=== PATIENT | female | born 1995 | race Two or more races ===

== ENCOUNTER 2024-07-08 10:28 | Observation (INO) | payer MEDICAID ==
[~2024-07-08 10:28] MED LIST: ACET-1304 PO; AZITTAB PO; CEFU500T43 PO; ONDA-133 PO; RANI-185 PO
[2024-07-08] MEDS ORDERED: PREN-96 PO (17:02)
--- NOTE | 2024-07-08 17:50 | DVH ---
BIOPHYSICAL PROFILE HISTORY: GDMA2 Comparison Study: None TECHNIQUE: Multiple real-time grayscale sonographic images through the gravid uterus of the fetus wi th duplex Doppler color flow and M-mode spectral analysis FINDINGS: BIOPHYSICAL PROFILE: breathing score: 2 movement score: 2 tone score: 2 Quantitative ANITA score: 2 (ANITA: 21 Cm.) Total score: 8 The cervix is not visualized Single live fetus in cephalic presentation. heart rate 133 beats per minute. Right lateral placenta without previa or abruption IMPRESSION: Biophysical profile score: 8
--- NOTE | 2024-07-09 06:29 | DVHDS2 ---
Physician Discharge Progress N Final Diagnosis: gdm 36wks Operations or Procedures: Operations or Procedures nst,sono Condition on Discharge: Good Disposition: Home Discharge Instructions: Diet: Regular Activity: No Restrictions, As Tolerated Medications: na Follow Up Care: Specialist: 3d Discharge Statement: "Patient was advised to return to the ER or call 911 if any headaches, dizziness, shortness of breath, chest pain, abdominal pain, bleeding, fevers, or worsening of medical condition. Patient was counseled about treatment plan, medications, possible side effects, patientverbalized understanding. All questions were answered to the best of my ability. This discharge took greater then 30 minutes in planning, reviewing documentation, counseling the patient, and discussing with other team members." Visit Coding OBGYN Date of Service: Jul 08, 2024 Billing Provider: SANDRA CAMARENA DO SYRUP MIXER HELPER Common Visit Codes: [id number] INP/OBS CARE (HIGH) SYRUP MIXER HELPER Procedure Codes: 86049-20- NON-STRESS TEST SANDRA CAMARENA DO Jul 09, 2024 06:29
== END 2024-07-08 18:50 | disposition home or self-care (01) ==
LOC: LDRP 16:33
PROVIDERS: ADMIT Obstetrics & Gynecology; ATTEND Obstetrics & Gynecology
DX: O24.419 Gestational diabetes mellitus in pregnancy, unspecified control (principal); Z3A.36 36 weeks gestation of pregnancy; Z79.899 Other long term (current) drug therapy
CPT/HCPCS: 76818; 82948; 82962; 94760; G0378; 76819

== ENCOUNTER 2024-07-11 07:30 | Observation (INO) | payer MEDICAID ==
[~2024-07-11 07:30] MED LIST changes: +PREN-96 PO
--- NOTE | 2024-07-11 17:44 | DVH ---
EXAM: US BIOPHYSICAL PROFILE HISTORY: GDMA2 COMPARISON: US BIOPHYSICAL PROFILE on DOS: 07/08/24 TECHNIQUE: Multiple transabdominal real-time grayscale sonographic images through the gravid uterus of the fetus with duplex Doppler color flow and M-mode spectral analysis Findings/Impression: Single live intrauterine in vertex presentation with heart rate of 159 bpm. Biophysical profile was performed with 2 points for respirations, 2 points for movement, 2 points for tone and 2 points for amniotic fluid index. Biophysical profile score of 8/8. Amniotic fluid is within normal limits with ANITA 17.2 cm and MVP 5.4 cm. Normal ANITA (5-25 cm) Normal MVP (2-8 cm)
--- NOTE | 2024-07-12 11:35 | DVHDS2 ---
Physician Discharge Progress N Final Diagnosis: [id number] Operations or Procedures: Operations or Procedures nst,sono Condition on Discharge: Good Disposition: Home Discharge Instructions: Diet: See Comment Diet comment: Gestational Diabetes diet Activity: No Restrictions, As Tolerated Medications: na Follow Up Care: Specialist: 4d Discharge Statement: "Patient was advised to return to the ER or call 911 if any headaches, dizziness, shortness of breath, chest pain, abdominal pain, bleeding, fevers, or worsening of medical condition. Patient was counseled about treatment plan, medications, possible side effects, patientverbalized understanding. All questions were answered to the best of my ability. This discharge took greater then 30 minutes in planning, reviewing documentation, counseling the patient, and discussing with other team members." Visit Coding OBGYN Date of Service: Jul 11, 2024 Billing Provider: SANDRA CAMARENA DO CHILDREN'S LITERATURE PROFESSOR Common Visit Codes: [id number] INP/OBS CARE (HIGH) SANDRA CAMARENA DO Jul 12, 2024 11:35
== END 2024-07-11 18:16 | disposition home or self-care (01) ==
LOC: LDRP 16:52
PROVIDERS: ADMIT Obstetrics & Gynecology; ATTEND Obstetrics & Gynecology
DX: O24.419 Gestational diabetes mellitus in pregnancy, unspecified control (principal); Z98.890 Other specified postprocedural states; Z79.899 Other long term (current) drug therapy; Z3A.37 37 weeks gestation of pregnancy
CPT/HCPCS: 59025; 76819; 81002; 82948; 82962; 94760; G0378

== ENCOUNTER 2024-07-14 11:57 | Observation (INO) | payer MEDICAID ==
--- NOTE | 2024-07-14 12:28 | DVHDS2 ---
Physician Discharge Progress N Final Diagnosis: gdm 37wks Operations or Procedures: Operations or Procedures nst,sono Condition on Discharge: Good Disposition: Home Discharge Instructions: Diet: Consistent carbohydrate Activity: No Restrictions, As Tolerated Medications: na Follow Up Care: Specialist: 4d Discharge Statement: "Patient was advised to return to the ER or call 911 if any headaches, dizziness, shortness of breath, chest pain, abdominal pain, bleeding, fevers, or worsening of medical condition. Patient was counseled about treatment plan, medications, possible side effects, patientverbalized understanding. All questions were answered to the best of my ability. This discharge took greater then 30 minutes in planning, reviewing documentati on, counseling the patient, and discussing with other team members." Visit Coding OBGYN Date of Service: Jul 14, 2024 Billing Provider: SANDRA CAMARENA DO BAKER CHEF Common Visit Codes: [id number] OBS CARE (HIGH) BAKER CHEF Procedure Codes: 05177-54- NON-STRESS TEST SANDRA CAMARENA DO Jul 14, 2024 12:28
--- NOTE | 2024-07-14 12:52 | DVH ---
Procedure: US BIOPHYSICAL PROFILE 07/14/2024 12:14 PM Indication: GDMA2 Comparison: US BIOPHYSICAL PROFILE on DOS: 07/11/24, US BIOPHYSICAL PROFILE on DOS: 07/08/24 Technique: Sonogram of gravid uterus utilizing grayscale and color techniques. FINDINGS: Single living intrauterine gestation. Presentation: Cephalic Placenta: Posterior heart rate: 144 bpm ANITA: 15.8 cm, DVP: 6.7 cm Maternal cervix: Not visualized Biophysical Profile: breathing score: 2 movement score: 2 tone: 2 Quantitative ANITA score: 2 Total score: 8/8 IMPRESSION: 1. Single living as above. 2. Biophysical profile score: 8/8.
== END 2024-07-14 13:19 | disposition home or self-care (01) ==
LOC: UNDOADMOB 11:57 → LDRP 11:57
PROVIDERS: ADMIT Obstetrics & Gynecology; ATTEND Obstetrics & Gynecology
DX: O24.419 Gestational diabetes mellitus in pregnancy, unspecified control (principal); Z3A.37 37 weeks gestation of pregnancy; Z79.899 Other long term (current) drug therapy
CPT/HCPCS: 59025; 76819; 81002; 82948; 82962; 94760; G0378

== ENCOUNTER 2024-07-18 06:55 | Observation (INO) | payer MEDICAID ==
--- NOTE | 2024-07-18 18:48 | DVH ---
Procedure: US BIOPHYSICAL PROFILE 07/18/2024 05:26 PM Indication: GDMA1 Comparison: US BIOPHYSICAL PROFILE on DOS: 07/14/24, US BIOPHYSICAL PROFILE on DOS: 07/11/24, US BIOPHYS ICAL PROFILE on DOS: 07/08/24 Technique: Sonogram of gravid uterus utilizing grayscale and color techniques. FINDINGS: Single living intrauterine gestation. Orientation: Oblique lie Placenta: Posterior and fundal with no evidence of previa or abruption heart rate: 140 bpm ANITA: 17.5 cm, DVP: 4 cm Maternal cervix: Closed, 4.8 cm in length Biophysical Profile: breathing score: 2 movement score: 2 tone: 2 Quantitative ANITA score: 2 Total score: 8/8 IMPRESSION: 1. Single living as above. 2. Biophysical profile score: 8/8.
--- NOTE | 2024-07-18 23:11 | DVHDS2 ---
Discharge Summary Date of Admission Jul 18, 2024 at 17:04 Date of Discharge: Jul 18, 2024 Admitting Diagnosis gdm a2 38 wks Labs/Diagnostic Data: Laboratory Results Test 07/18/24 18:32 POC Glucose 110 mg/dl (70-106) Brief Hx & Hospital Course: gdm A2 Condition at Discharge: Good Final Diagnosis/Problems List GDM A2 Discharge Disposition: Home Discharge Instruct/Medications Diet: Consistent carbohydrate Activity: No Restrictions, As Tolerated Follow Up/Referral: reasuring fht Discharge Statement: "Patient was advised to return to the ER or call 911 if any headaches, dizziness, shortness of breath, chest pain, abdominal pain, bleeding, fevers, or worsening of medical condition. Patient was counseled about treatment plan, medications, possible side effects, patientverbalized understanding. All questions were answered to the best of my ability. This discharge took greater then 30 minutes in planning, reviewing documentation, counseling the patient, and discussing with other team members." ASSESSMENT ASSESSMENT Assessment Visit Coding OBGYN Date of Service: Jul 18, 2024 Billing Provider: IVETH HUERTA DO MACHINE II TRIMMER Common Visit Codes: [id number] INP/OBS CARE(HIGH), 04784-YHX/OBS SAME DATE (LOW), 16118-GOO/OBS SAME DATE (MOD) MACHINE II TRIMMER Procedure Codes: 54798-54- NON-STRESS TEST IVETH HUERTA DO Jul 18, 2024 23:11
== END 2024-07-18 19:21 | disposition home or self-care (01) ==
LOC: LDRP 17:04
PROVIDERS: ADMIT Obstetrics & Gynecology; ATTEND Obstetrics & Gynecology
DX: O24.419 Gestational diabetes mellitus in pregnancy, unspecified control (principal); Z98.890 Other specified postprocedural states; Z79.899 Other long term (current) drug therapy; Z3A.38 38 weeks gestation of pregnancy
CPT/HCPCS: 59025; 76819; 81002; 82948; 82962; 94760; G0378

== ENCOUNTER 2024-07-21 06:41 | Observation (INO) | payer MEDICAID ==
[~2024-07-21 06:41] MED LIST changes: -ACET-1304 PO; -AZITTAB PO; -CEFU500T43 PO; -ONDA-133 PO; -RANI-185 PO
--- NOTE | 2024-07-21 12:54 | DVH ---
BIOPHYSICAL PROFILE HISTORY: gdma2 Comparison Study: None available at time of dictation. TECHNIQUE: Multiple real-time grayscale sonographic images through the gravid uterus of the fetus wi th duplex Doppler color flow and M-mode spectral analysis FINDINGS: BIOPHYSICAL PROFILE: breathing score: 2/2 movement score: 2/2 tone score: 2/2 Quantitative ANITA score: 2/2 (ANITA: 15.3 Cm.) Total score: 8/8 The cervix closed Single live fetus in variable presentation. heart rate 135 beats per minute. Posterior fundal placenta. IMPRESSION: 1. Biophysical profile score: 8/8
[2024-07-21] MEDS ORDERED: CEPH250C PO (13:22)
--- NOTE | 2024-07-23 08:20 | DVHDS2 ---
Physician Discharge Progress N Final Diagnosis: gdm 38wks Operations or Procedures: Operations or Procedures nst,sono Condition on Discharge: Good Disposition: Home Discharge Instructions: Diet: Consistent carbohydrate Activity: No Restrictions, As Tolerated Medications: na Follow Up Care: Specialist: 3d Discharge Statement: "Patient was advised to return to the ER or call 911 if any headaches, dizziness, shortness of breath, chest pain, abdominal pain, bleeding, fevers, or worsening of medical condition. Patient was counseled about treatment plan, medications, possible side effects, patientverbalized understanding. All questions were answered to the best of my ability. This discharge took greater then 30 minutes in planning, reviewing documentati on, counseling the patient, and discussing with other team members." Visit Coding OBGYN Date of Service: Jul 21, 2024 Billing Provider: SANDRA CAMARENA DO PRODUCTION LINE Common Visit Codes: [id number] OBS CARE (HIGH) PRODUCTION LINE Procedure Codes: 58299-76- NON-STRESS TEST SANDRA CAMARENA DO Jul 23, 2024 08:20
== END 2024-07-21 13:32 | disposition home or self-care (01) ==
LOC: UNDOADMOB 11:48 → LDRP 11:48
PROVIDERS: ADMIT Obstetrics & Gynecology; ATTEND Obstetrics & Gynecology
DX: O24.419 Gestational diabetes mellitus in pregnancy, unspecified control (principal); Z3A.38 38 weeks gestation of pregnancy; Z79.899 Other long term (current) drug therapy; Z98.890 Other specified postprocedural states
CPT/HCPCS: 59025; 76819; 81002; 82948; 82962; 94760; G0378

== ENCOUNTER 2024-07-29 06:13 | Inpatient (IN) | payer MEDICAID ==
[~2024-07-29] VITALS: Ht 154.9 cm; Wt 114.3 kg
[2024-07-29] VITALS (13 sets, daily range): BP systolic 107–136; BP diastolic 66–82; PULSE 60–83; RESP 15–25; TEMP 97.8–98.5; O2SAT 95–100
[~2024-07-29 06:13] MED LIST changes: +CEPH250C PO
--- NOTE | 2024-07-29 07:40 | DVH ---
CLINICAL HISTORY: Gestational diabetes. COMPARISON: US BIOPHYSICAL PROFILE on DOS: 07/21/24, US BIOPHYSICAL PROFILE on DOS: 07/18/24, US BIOPHY SICAL PROFILE on DOS: 07/14/24 TECHNIQUE: biophysical profile was performed. Transabdominal sonographic images of the fetus we re obtained. FINDINGS: The fetus is in cephalic position. heart rate measures 147 BPM. Amniotic fluid index measures 14.2 cm. The placenta is posterior/fundal in position with no evidence of previa or abruptio n. BPP profile is an overall score of 8/8, with 2/2 points for breathing, with at least one episode of breathing over a 30 second duration during a 30 minute observation, 2/2 points for m ovements, with 3 or more discrete body or limb movements, 2/2 points for tone, with one or more episodes of extremity extension with return to flexion, or opening and closing of hand, and 2/ 2 points for amniotic fluid, with at least 1 pocket of amniotic fluid that measures 2 cm in 2 perpend icular planes. IMPRESSION: BPP score of 8/8.
[2024-07-29] MEDS ORDERED: PHISODERM TOP SOLN 240ML BTL TOP PRN (07:45)
[2024-07-29] MEDS ORDERED: DEXTROSE (50%) 50ML SYRG IV PRN (07:45)
[2024-07-29] MEDS ORDERED: BUTORPHANOL TARTRATE 2 MG/1 ML VIAL IV PRN ×2 (07:45)
[2024-07-29] MEDS ORDERED: PENICILLIN G POT 5MIL/D5 50ML 50 ML IV ONE (07:45)
[2024-07-29] MEDS: InsuLIN REG 1unit/0.01ml Soln (100units/ml) IV ONE (07:45)
[2024-07-29] MEDS ORDERED: LIDOCAINE 2%HCL (LOCAL ANESTH.) INJ 20ML MDV IJ PRN (07:45)
[2024-07-29] MEDS ORDERED: WITCH HAZEL-GLYCERIN PAD TOP PRN (07:45)
[2024-07-29] MEDS ORDERED: miSOPROStol 50 MCG per PRE-CUT 1/2 TAB PO PRN (07:45)
[2024-07-29] MEDS ORDERED: DERMOPLAST 60ML BOTTLE TOP PRN (07:45)
[2024-07-29] MEDS ORDERED: ACCU-CHEK COMFORT CURVE STRIP VI SCH ×2 (08:00→10:00)
[2024-07-29] MEDS ORDERED: InsuLIN REG 1unit/0.01ml Soln (100units/ml) SC SCH (08:00)
--- NOTE | 2024-07-29 08:10 | DVHHP2 ---
OB CC & HPI Date Date of Admission: Jul 29, 2024 Patient Identification: : 2 Para: 1 EDC: Jul 31, 2024 EGA: 39.5 Chief Complaints: Reason for admission: induction of labor Indication for induction: other (GDMA2, non compliant with care) History of Present Complaints 28y IUP 39.5 wk, admitted per Dr Crowell for Induction of Labor (IOL) due to poorly controlled GDMA2- on Insulin and Metformin. Patient has been poorly compliant with care. EFW 8.5 pounds. GBS unknown. Denies any symptoms of labor at this time. Past Medical History Cardiac: No pertinent Hx Pulmonary: No pertinent Hx Central Nervous System: No pertinent Hx GI: No pertinent Hx Hemotology/Oncology: No pertinent Hx Hepatobiliary: No pertinent Hx Psychiatric: No pertinent Hx Musculoskeletal: No pertinent Hx Rheumotologic: No pertinent Hx Infectious Disease: No peritnent Hx ENT: No pertinent Hx Renal/: No pertinent Hx Endocrine: No pertinent Hx Dermatology: No pertinent Hx Past Surgical History: No pertinent Hx OB History OB History Care: Limited Care Ultrasounds: Normal mid trimester US Obstetrical Complications: Gestational Diabetes Allergies: Coded Allergies: NO KNOWN ALLERGIES (Unverified , 04/03/13) Home Meds Reported Medications Cephalexin (KEFLEX CAPSULE) 250 Mg Cp, 500 MG PO Q6HR for 7 Days 07/21/24 Vit W/ Ferrous Fumara ( One Daily) Daily Tab, 1 TAB PO DAILY, #90 TAB 3 Refills 07/08/24 Current Medications Current Medications Medications (Trade) Dose Ordered Sig/Juan Ramon Route PRN Reason Start Time Stop Time Status Last Admin Lactated Ringer's 1,000 ml @ 125 mls/hr Q8H IV 07/29/24 07:45 Diagnostic Test (Pha) (Accu-Chek Comfort Curve T) 1 strip Q4HP 07/29/24 10:00 07/29/24 07:43 TU Pandey (Tucks) 1 pad PRN PRN TOP PERINEAL AREA DISCOMFORT 07/29/24 07:45 Sodium Lauryl Sulfate (Phisoderm) 240 ml PRN PRN TOP PERINEAL AREA DISCOMFORT 07/29/24 07:45 Benzocaine (Dermoplast) 1 applic PRN PRN TOP PERINEAL AREA DISCOMFORT 07/29/24 07:45 Butorphanol Tartrate (Stadol Injection) 1 mg Q4HPRN PRN IV MODERATE PAIN (4-6 PAIN SCALE) 07/29/24 07:45 Butorphanol Tartrate (Stadol Injection) 2 mg Q4HPRN PRN IV SEVERE PAIN (7-10 PAIN SCALE) 07/29/24 07:45 Misoprostol (Cytotec) 50 mcg Q4HPRN PRN PO CERVICAL RIPENING 07/29/24 07:45 Lidocaine HCl (Xylocaine) 20 ml ONCE PRN IJ PERINEAL AREA DISCOMFORT 07/29/24 07:45 Diagnostic Test (Pha) (Accu-Chek Comfort Curve T) 1 strip IQ4HR 07/29/24 08:00 Insulin Human Regular (InsuLIN R) IQ4HR SC 07/29/24 08:00 Dextrose 50 ml UD PRN IV Blood Sugar LESS THAN 60 07/29/24 07:45 Penicillin G Potassium [id number] units/Dextrose 50 ml @ 100 mls/hr Q4H IV 07/29/24 11:45 UNV Family & Social History Family/Social History RPR/VDRL: Negative GBS Status: Unknown HBsAG: Negative Review of Systems Constitutional: No symptom reported Ears, Nose, & Throat: No symptom reported Eyes: No symptom reported Pulmonary/Respiratory: No symptom reported Cardiovascular: No symptom reported Gastrointestinal: No symptom reported Genitourinary: No symptom reported Musculoskeletal: No symptom reported Skin: No symptom reported Psychiatric: No symptom reported Endocrine: No symptom reported Hemotologic/Lymphatic: No symptom reported OB Admission Exam Physical Exam HEENT: NCAT, PERRLA, Moist Membranes, EOMI Heart: Rhythm Normal Lungs: Clear Abdomen: Gravid Extremities: Normal Reflexes: Normal Cervical Dilatation: None Effacement: 0% Station: Ballotable Membranes: Intact Heart Rate: 130's Accelerations: Accelerations Present Decelerations: No Decelerations Short Term Variability: Present Imaging Services Director Variability: Average (6-25) Contractions on Admission: 6-10 Minutes Apart Intensity: Mild OB Plan Plan Admitting Diagnosis: 1. Term IUP GDMA2, poor control 2. Morbid Obesity (BMI 48) complicating 3. GBS unknown status 4. Suspected LGA, cephalopelvic disproportion Plan: Section Other Plan: Informed consent obtained for treatment. Clincially, pelvis feels narrow and contracted, yet exam is limited by patient habitus EFW 3700 gm by US today. I discussed uncertainty of US EFW by as much as 15% I offered patient 1' c/section due to the risks of macrosomia/LGA She understands LGA can be associated with trauma, failed induction of labor, shoulder dystocia with resulting nerve injury, Erb palsy, bone fractures, asphyxia , damage and . She was also given the option of labor induction with a trial of labor with C/S only for and standard indications of obstructed labor. She and her asked questions and have elected to proceed with 1' C/S without a trial of labor Risks of surgery: pain, scar, bleeding, infection, injury to bowel/bladder, adjacent organs, poss blood transfusion all reviewed w/ patient in detail. Visit Coding OBGYN Date of Service: Jul 29, 2024 Billing Provider: YASSINE OLIVER DO RISK PROFESSIONAL Common Visit Codes: [id number] OBS CARE (HIGH) YASSINE OLIVER DO Jul 29, 2024 08:10
[2024-07-29 08:19] LABS: Basophils # (auto) 0 10 ^3/uL (0-0.2); Basophils % (auto) 0.4 % (0.0-2.0); Eosinophils # (auto) 0.1 10 ^3/uL (0-0.8); Eosinophils % (auto) 1.2 % (0.0-7.0); Hematocrit 38.6 % (36.0-46.0); Hemoglobin 13.3 g/dL (12.2-16.2); Lymphocytes # (auto) 1.1 10 ^3/uL (0.4-5.4); Lymphocytes % (auto) 15.5 % (10.0-50.0); Mean Corpuscular Hemoglobin 31.8 pg (28.0-32.0); Mean Corpuscular Hgb Conc. 34.4 g/dL (32.0-36.0); Mean Corpuscular Volume 92.6 fL (80.0-100.0); Monocytes # (auto) 0.3 10 ^3/uL (0-1.3); Monocytes % (auto) 4.4 % (0.0-12.0); Neutrophils # (auto) 5.7 10 ^3/uL (1.6-8.6); Neutrophils % (auto) 78.5 % (37.0-80.0); Nucleated Red Blood Cells % 0.1 %; Platelet Count (auto) 345 10^3/uL (140-450); Red Blood Cells 4.17 10^6/uL (4.0-5.20); Red Cell Distribution Width 15.1 % (11.8-14.3); White Blood Cell 7.2 10^3/uL (4.4-10.8)
[2024-07-29 08:32] LABS: Alanine Aminotransferase 31 U/L (7-40); Albumin 4.3 g/dL (3.2-4.8); Anion Gap 10 (5-15); Aspartate Aminotransferase 32 U/L (13-40); BUN/Creatinine Ratio 16.7 (10.0-20.0); Bilirubin, Total 0.4 mg/dL (0.2-1.0); Blood Urea Nitrogen 11 mg/dL (9-23); Calcium 9.8 mg/dL (8.7-10.4); Carbon Dioxide 22 mmol/L (20-31); Chloride 105 mmol/L (98-107); Glucose 103 mg/dL (74-106); Potassium 4.4 mmol/L (3.5-5.1); Sodium 137 mmol/L (136-145); Total Protein 7.3 g/dL (5.7-8.2)
[2024-07-29 08:33] LABS: Alkaline Phosphatase 172 U/L (46-116)
[2024-07-29 08:36] LABS: INR 1.02 (0.9-1.15); Partial Thromboplastin Time 29.3 SEC (24.5-34.5); Prothrombin Time 10.8 sec (9.3-11.8)
[2024-07-29 08:42] LABS: Urine Bacteria FEW /hpf (None Seen); Urine Blood 1+ /uL (Negative); Urine Clarity Turbid (Clear); Urine Color Light-Yellow (Yellow); Urine Mucus FEW (None Seen); Urine Protein, UAD Negative (Negative); Urine Specific Gravity 1.016 (1.001-1.035); Urine Squamous Epithelial Cell MOD /hpf (<5); Urine Urobilinogen Normal (Negative); Urine WBC 40 /HPF (0-5); Urine pH 6.5 (5.0-9.0)
[2024-07-29 08:47] LABS: Amphetamine Screen, Urine Neg (NEGATIVE); Barbiturate Scree,Urine Neg (NEGATIVE); Benzodiazephine Screen, Urine Neg (NEGATIVE); Cannabinoid Screen, Urine Neg (NEGATIVE); Cocaine Screen, Urine Neg (NEGATIVE); Opiate Scree,Urine Neg (NEGATIVE); Phencyclidine Screen, Urine Neg (NEGATIVE)
[2024-07-29] MEDS ORDERED: DINOPROSTONE 10MG VAG SUPP PV ONE (09:00)
--- NOTE | 2024-07-29 09:02 | DVH ---
LIMITED OB ULTRASOUND > 14 WKS: HISTORY: GDM suspected macrosomia TECHNIQUE: Multiple real-time grayscale images of the gravid uterus with duplex Doppler color flow an d M-mode spectral analysis. TRANSDUCER: Transabdominal COMPARISON: None FINDINGS: IUP single live fetus at 39 weeks and 3 days based on composite averages of the BPD, head circumferen ce, abdominal circumference and femur length Estimated weight 3787 grams heart rate 142 beats per minute ANITA 14.1 cm Cervix not visualized Cephalic Presentation Posterior Placenta without previa or abruption. IMPRESSION: IUP single live fetus at 39 weeks and 3 days AUA corresponding to an ELENA of 08/02/2024
[2024-07-29] MEDS ORDERED: MORPHINE SULF PF 5 MG/10 ML VIAL ONE (10:00)
[2024-07-29] MEDS ORDERED: oxyTOCIN 10 UNIT/ML 10ML VIAL ONE (10:00)
[2024-07-29] MEDS: ceFAZolin 2 GM/D5W50ml 50 ML IV ONE ×2 (10:17→10:30)
[2024-07-29] MEDS: LACTATED RINGER'S 1,000 ML IV SCH (10:20)
[2024-07-29] MEDS ORDERED: ONDANSETRON HCL 4 MG/2 ML VIAL ONE (10:36)
[2024-07-29] MEDS ORDERED: ePHEDrine SULFATE 50 MG/ML AMP ONE (10:37)
[2024-07-29] MEDS: ceFAZolin 1GM VL ONE (10:45)
[2024-07-29] MEDS ORDERED: HYDROmorphone HCL 2 MG/ML VL/or syr IV PRN ×3 (11:30→11:45)
[2024-07-29] MEDS: GUM (CHEWING) 1 GUM CHEW CHEW ONE (11:30)
--- NOTE | 2024-07-29 11:32 | DVHOP ---
DATE OF SURGERY: 07/29/2024 PREOPERATIVE DIAGNOSES: * Term intrauterine 39 weeks and 4 days. * GDMA2, poorly controlled. * Morbid obesity. * Cephalopelvic disproportion. * Suspected large for gestational age. FINAL DIAGNOSES: * Term intrauterine 39 weeks and 4 days. * GDMA2, poorly controlled. * Morbid obesity. * Cephalopelvic disproportion. * Suspected large for gestational age. PROCEDURE PERFORMED: Primary low transverse section via Pfannenstiel skin incision. SURGEON: Gustavo Proctor DO CARE TAKER: Jimi Ponce NP TYPE OF ANESTHESIA: Spinal ANESTHESIOLOGIST: Wiliam Vargas DO DESCRIPTION OF FINDINGS: Delivery of a liveborn male infant, cephalic presentation, clear amniotic fluid. scores of 8 and 9. Weight 8 pounds 2 ounces. Normal uterus. Normal bilateral fallopian tubes and ovaries, and normal-appearing placenta. TECHNICAL PROCEDURE: After informed consent was obtained, the patient was taken to the operating room where her spinal anesthesia was found to be adequate. She was placed in the supine position with a slight leftward tilt. She was sterilely prepped and draped in the usual fashion. A Pfannenstiel skin incision was made with the scalpel. The incision was carried down sharply to the underlying layer of fascia. The fascia was incised in the midline and extended bilaterally. The rectus muscles were dissected off the rectus fascia and entry into the peritoneal cavity was performed bluntly. The peritoneal incision was extended superiorly and inferiorly with good visualization of the bladder. The Aguila retractor was placed into the incision. Next, the lower uterine segment was incised in a low transverse fashion with a 2nd scalpel. The incision was extended laterally. Using digital technique, the amniotic membranes were ruptured. The baby was found to be in the cephalic presentation, occiput anterior. The baby was then delivered atraumatically. After delivery of the infant, the nose and mouth were suctioned. The cord was clamped and cut after 30 seconds. The baby was handed off to the waiting pediatric team. Cord blood was obtained. The placenta was then manually removed. The uterus was exteriorized and cleared of all clots and debris using moist laparotomy sponges. The uterine incision was repaired with #1 PDS in continuous running locking fashion in a single layer. Interrupted [id number] sutures were used for added hemostasis at sites of bleeding at the hysterotomy site. Next, the uterus was returned to the abdomen. The paracolic gutters were cleared of all clots and debris. The abdomen was irrigated with sterile water. Hemostasis was confirmed. All instrumentation was removed from the patient's abdomen. The retractor was also removed from the patient's abdomen. The counts were correct. Next, the rectus fascia was closed with #1 Stratafix in continuous running fashion with good tissue approximation. The subcutaneous tissue was closed with 3-0 plain gut in an interrupted fashion and the skin closed in subcuticular fashion using 3-0 Monocryl. A thin layer of Dermabond and silk dressing was placed over the incision. The patient tolerated the procedure well. Sponge, lap, and needle counts were correct x4. INTRAOPERATIVE COMPLICATIONS: None. ESTIMATED BLOOD LOSS: 800 mL. POSTOPERATIVE CONDITION: Stable. SPECIMENS: Cord, blood, and placenta. MEDICATIONS: The patient received 3 g of Ancef prior to skin incision, IV Pitocin at the time of cord clamp. DO TANA Castaneda TID: [id number] RECEIPT: [id number]
[2024-07-29] MEDS ORDERED: NALOXONE HCL 0.4 MG/ML VIAL IV PRN (11:45)
[2024-07-29] MEDS ORDERED: PENICILLIN G POTASSIUM 2,500,000 UNITS in D5W 5% 50 ML IV SCH (11:45)
[2024-07-29] MEDS ORDERED: ONDANSETRON HCL 4 MG/2 ML VIAL IV ONE (11:45)
[2024-07-29] MEDS ORDERED: ACETAMINOPHEN IV 1000 MG/100ML (10MG/ML) IV PRN (11:45)
[2024-07-29] MEDS ORDERED: KETOROLAC TROMETH 30 MG/ML 1ML VIAL IV PRN (11:45)
[2024-07-29] MEDS ORDERED: NALBUPHINE HCL 10 MG/1ml INJECTION SUBCUT ONE (11:45)
[2024-07-29] MEDS ORDERED: MEPERIDINE HCL (25 MG/ML) 1ML VIAL IV PRN (11:45)
[2024-07-29] MEDS ORDERED: ONDANSETRON HCL 4 MG/2 ML VIAL IV PRN (11:45)
[2024-07-29] MEDS ORDERED: DexAMETHasone SOD PHOS 10MG/1ML VIAL INJ IV PRN (11:45)
[2024-07-29] MEDS: KETOROLAC TROMETH 30 MG/ML 1ML VIAL IV PRN (14:26)
[2024-07-29] MEDS ORDERED: ceFAZolin 1GM/50ML 50 ML IV ONE (17:00)
[2024-07-29] MEDS: ONDANSETRON HCL 4 MG/2 ML VIAL IV PRN (17:53)
[2024-07-29] MEDS: ceFAZolin 1GM/50ML 50 ML IV ONE (17:53)
--- NOTE | 2024-07-29 18:39 | DVHPN2 ---
Visit Coding OBGYN Date of Service: Jul 29, 2024 Billing Provider: YASSINE OLIVER DO CLINICAL CARE COORDINATOR Common Visit Codes: PROCEDURE ONLY CLINICAL CARE COORDINATOR Procedure Codes: [id number] OB CARE, DEL YASSINE OLIVER DO Jul 29, 2024 18:39
[2024-07-30] VITALS (13 sets, daily range): BP systolic 119–140; BP diastolic 65–82; PULSE 70–105; RESP 16–20; TEMP 98.3–98.7; O2SAT 92–97
[2024-07-30 04:44] LABS: Basophils # (auto) 0 10 ^3/uL (0-0.2); Basophils % (auto) 0.3 % (0.0-2.0); Eosinophils # (auto) 0 10 ^3/uL (0-0.8); Eosinophils % (auto) 0.5 % (0.0-7.0); Hematocrit 33.7 % (36.0-46.0); Hemoglobin 11.5 g/dL (12.2-16.2); Lymphocytes % (auto) 10.1 % (10.0-50.0); Mean Corpuscular Hemoglobin 31.6 pg (28.0-32.0); Mean Corpuscular Hgb Conc. 34.1 g/dL (32.0-36.0); Mean Corpuscular Volume 92.8 fL (80.0-100.0); Monocytes # (auto) 0.4 10 ^3/uL (0-1.3); Monocytes % (auto) 4.2 % (0.0-12.0); Neutrophils # (auto) 8.1 10 ^3/uL (1.6-8.6); Neutrophils % (auto) 84.9 % (37.0-80.0); Nucleated Red Blood Cells % 0.1 %; Platelet Count (auto) 279 10^3/uL (140-450); Red Blood Cells 3.63 10^6/uL (4.0-5.20); Red Cell Distribution Width 15.1 % (11.8-14.3); White Blood Cell 9.5 10^3/uL (4.4-10.8)
[2024-07-30] MEDS: HYDROcodone-ACET 5/325MG TAB PO PRN ×2 (07:27→16:32)
[2024-07-30] MEDS: diphenhdrAMINE HCL 50 MG/1 ML VL IV PRN (07:46)
--- NOTE | 2024-07-30 10:17 | DVHPN2 ---
Progress Note Date Seen: Jul 30, 2024 Subjective POD#1 s/p 1' C/S for GDMA2 w/ suspected macrosomia /LGA and CPD - Moderate pain, controlled - Anorexia without N/V, improving - Lochia mild vital signs Vital Sign Date Time Temp Pulse Resp B/P (MAP) Pulse Ox O2 Delivery O2 Flow Rate FiO2 07/30/24 07:00 Room Air 0.0 07/30/24 07:00 98.3 77 20 119/78 (92) 97 98.3 07/29/24 11:29 100 Total Intake and Output 07/29/24 07/29/24 07/30/24 15:00 23:00 07:00 Output Total 550 ml 625 ml 650 ml Balance -550 ml -625 ml -650 ml medications Current Medications Medications Dose Ordered Sig/Juan Ramon Route Start Time Stop Time Status Last Admin Dose Admin Lactated Ringer's 1,000 ml @ 125 mls/hr Q8H IV 07/29/24 07:45 07/29/24 23:57 125 MLS/HR Diagnostic Test (Pha) 1 strip IQ4HR 07/29/24 08:00 Insulin Human Regular IQ4HR SC 07/29/24 08:00 Ondansetron HCl 4 mg Q4HP PRN IV 07/29/24 11:30 07/29/24 17:53 4 MG Hydromorphone HCl 1 mg Q4HP PRN IV 07/29/24 11:30 Docusate Sodium 200 mg HS PO 07/29/24 22:00 Dimethicone 80 mg QID PRN PO 07/29/24 11:30 Ibuprofen 800 mg Q8HPRN PRN PO 07/29/24 11:30 Acetaminophen/ Hydrocodone Bitart 1 tab Q4HPRN PRN PO 07/30/24 06:00 07/30/24 07:27 1 TAB Acetaminophen/ Hydrocodone Bitart 2 tab Q4HPRN PRN PO 07/30/24 06:00 Diphenhydramine HCl 25 mg Q4HP PRN IV 07/29/24 11:45 07/30/24 07:46 25 MG laboratory and microbiology Laboratory Tests 07/30/24 04:30 07/29/24 07:55 Test 07/29/24 07:55 Range/Units Serum Glucose 103 74-106 mg/dL Objective O: AFVSS Chest: heart and lung sounds normal. Abd soft, non-tender, fundus firm, BS, no rebound or guarding, Incision - dressing and incision clean, dry, intact Ext Neg Homans, Non-tender, edema Lochia - minimal Labs Pending Assessment/Plan POD#1 s/p 1' C/S GDMA2, normal BS Plan: 1. Advance orders 2. ADA Diabetic Diet 3. Continue glucose monitoring x 24hr 4. Pain control 5. Possible D/C tomorrow , if stable Plan discussed with: Patient Visit Coding OBGYN Date of Service: Jul 30, 2024 Billing Provider: YASSINE OLIVER DO [employer] F[employer] WORKER Common Visit Codes: [id number] INP/OBS CARE(MOD) YASSINE OLIVER DO Jul 30, 2024 10:17
[2024-07-30] MEDS ORDERED: IBU600T PO (10:18)
[2024-07-30] MEDS ORDERED: HYDR-4902 PO (10:18)
[2024-07-30] MEDS: IBUPROFEN 600 MG TAB PO PRN (19:35)
[2024-07-30] MEDS: SIMETHICONE 80 MG CHEWABLE TABLET PO PRN (23:16)
[2024-07-30] MEDS: DOCUSATE SOD 100 MG CAP PO SCH (23:16)
[2024-07-31 02:37] VITALS: BP 121/64; PULSE 87; RESP 16; TEMP 98.4; O2SAT 97
--- NOTE | 2024-07-31 06:54 | DVHPN2 ---
Progress Note Date Seen: Jul 31, 2024 Subjective POD#2 s/p primary C/S, GDM, Morbid Obesity Patient is c/o moderate pain, lochia mild. No N/V or fever. Tolerating regular diet Voiding well, + Flatus , no BM vital signs Vital Sign Date Time Temp Pulse Resp B/P (MAP) Pulse Ox O2 Delivery O2 Flow Rate FiO2 07/31/24 02:37 98.4 87 16 121/64 (83) 97 98.4 07/30/24 19:00 Room Air 07/30/24 07:00 0.0 07/29/24 11:29 100 Total Intake and Output 07/30/24 07/30/24 07/31/24 15:00 23:00 07:00 Output Total 800 ml 900 ml 200 ml Balance -800 ml -900 ml -200 ml medications Current Medications Medications Dose Ordered Sig/Juan Ramon Route Start Time Stop Time Status Last Admin Dose Admin Lactated Ringer's 1,000 ml @ 125 mls/hr Q8H IV 07/29/24 07:45 07/29/24 23:57 125 MLS/HR Diagnostic Test (Pha) 1 strip IQ4HR 07/29/24 08:00 Insulin Human Regular IQ4HR SC 07/29/24 08:00 Ondansetron HCl 4 mg Q4HP PRN IV 07/29/24 11:30 07/29/24 17:53 4 MG Hydromorphone HCl 1 mg Q4HP PRN IV 07/29/24 11:30 Docusate Sodium 200 mg HS PO 07/29/24 22:00 07/30/24 23:16 200 MG Dimethicone 80 mg QID PRN PO 07/29/24 11:30 07/30/24 23:16 80 MG Ibuprofen 800 mg Q8HPRN PRN PO 07/29/24 11:30 07/30/24 19:35 600 MG Acetaminophen/ Hydrocodone Bitart 1 tab Q4HPRN PRN PO 07/30/24 06:00 07/30/24 07:27 1 TAB Acetaminophen/ Hydrocodone Bitart 2 tab Q4HPRN PRN PO 07/30/24 06:00 07/30/24 23:16 2 TAB Diphenhydramine HCl 25 mg Q4HP PRN IV 07/29/24 11:45 07/30/24 07:46 25 MG laboratory and microbiology Laboratory Tests 07/30/24 04:30 07/29/24 07:55 Test 07/29/24 07:55 Range/Units Serum Glucose 103 74-106 mg/dL Objective O: AFVSS Chest: heart and lung sounds normal. Abd soft, non-tender, fundus firm, BS, no rebound or guarding, Incision - dressing and incision clean, dry, intact Ext Neg Homans, Non-tender, edema Lochia - minimal Labs reviewed, stable Assessment/Plan POD#2 s/p 1' C/S GDMA2, BS well controlled Plan: - Continued supportive care and pain control - possible d/c to home later today vs tomorrow, depending on pain control. Plan discussed with: Patient Visit Coding OBGYN Date of Service: Jul 31, 2024 Billing Provider: YASSINE OLIVER DO OFFAL SEPARATOR Common Visit Codes: [id number] INP/OBS CARE(MOD) YASSINE OLIVER DO Jul 31, 2024 06:54
[2024-07-31 07:00] VITALS: BP 134/76; PULSE 103; RESP 18; TEMP 99.3; O2SAT 97
[2024-07-31 15:00] VITALS: BP 100/54; PULSE 105; RESP 18; TEMP 98.8; O2SAT 96
[2024-07-31 19:00] VITALS: BP 119/64; PULSE 99; RESP 18; TEMP 98.1; O2SAT 97
[2024-07-31 23:00] VITALS: BP 134/74; PULSE 90; RESP 16; TEMP 98.5; O2SAT 96
[2024-08-01 03:00] VITALS: BP 129/72; PULSE 85; RESP 16; TEMP 98.1; O2SAT 97
--- NOTE | 2024-08-01 05:42 | DVHDS2 ---
Discharge Summary Date of Admission Jul 29, 2024 at 07:31 Date of Discharge: Aug 01, 2024 Admitting Diagnosis Term , GDM,Suspected macrosomia Labs/Diagnostic Data: Laboratory Results Test 07/30/24 04:30 07/29/24 22:09 07/29/24 07:55 07/29/24 07:30 White Blood Count 9.5 10^3/uL (4.4-10.8) Red Blood Count 3.63 10^6/uL (4.0-5.20) Hemoglobin 11.5 g/dL (12.2-16.2) Hematocrit 33.7 % (36.0-46.0) Mean Corpuscular Volume 92.8 fL (80.0-100.0) Mean Corpuscular Hemoglobin 31.6 pg (28.0-32.0) Mean Corpuscular Hemoglobin Concent 34.1 g/dL (32.0-36.0) Red Cell Distribution Width 15.1 % (11.8-14.3) Platelet Count 279 10^3/uL (140-450) Mean Platelet Volume 8.1 fL (6.9-10.8) Neutrophils (%) (Auto) 84.9 % (37.0-80.0) Lymphocytes (%) (Auto) 10.1 % (10.0-50.0) Monocytes (%) (Auto) 4.2 % (0.0-12.0) Eosinophils (%) (Auto) 0.5 % (0.0-7.0) Basophils (%) (Auto) 0.3 % (0.0-2.0) Neutrophils # (Auto) 8.1 10 ^3/uL (1.6-8.6) Lymphocytes # (Auto) 1.0 10 ^3/uL (0.4-5.4) Monocytes # (Auto) 0.4 10 ^3/uL (0-1.3) Eosinophils # (Auto) 0 10 ^3/uL (0-0.8) Basophils # (Auto) 0 10 ^3/uL (0-0.2) Nucleated Red Blood Cells 0.1 % POC Glucose 105 mg/dl (70-106) Prothrombin Time 10.8 sec (9.3-11.8) Prothrombin Time INR 1.02 (0.9-1.15) Activated Partial Thromboplast Time 29.3 SEC (24.5-34.5) Sodium Level 137 mmol/L (136-145) Potassium Level 4.4 mmol/L (3.5-5.1) Chloride Level 105 mmol/L (98-107) Carbon Dioxide Level 22 mmol/L (20-31) Anion Gap 10 (5-15) Blood Urea Nitrogen 11 mg/dL (9-23) Creatinine 0.66 mg/dL (0.550-1.02) Glomerular Filtration Rate Calc 123 mL/min (>90) BUN/Creatinine Ratio 16.7 (10.0-20.0) Serum Glucose 103 mg/dL (74-106) Hemoglobin A1c 5.9 % A1C (<5.7) Calcium Level 9.8 mg/dL (8.7-10.4) Total Bilirubin 0.4 mg/dL (0.2-1.0) Aspartate Amino Transferase (AST) 32 U/L (13-40) Alanine Aminotransferase (ALT) 31 U/L (7-40) Alkaline Phosphatase 172 U/L (46-116) Total Protein 7.3 g/dL (5.7-8.2) Albumin 4.3 g/dL (3.2-4.8) Treponema pallidum Antibody Non-reactive (Negative) Hepatitis C Antibody Negative (Negative) Urine Color Light-yellow (Yellow) Urine Clarity Turbid (Clear) Urine pH 6.5 (5.0-9.0) Urine Specific [place] 1.016 (1.001-1.035) Urine Protein Negative (Negative) Urine Ketones Negative (Negative) Urine Blood 1+ /uL (Negative) Urine Nitrite Negative (Negative) Urine Bilirubin Negative (Negative) Urine Urobilinogen Normal mg/dL (Negative) Urine Leukocyte Esterase 3+ /uL (Negative) Urine RBC 23 /hpf (0 - 4) Urine Microscopic WBC 40 /HPF (0-5) Urine Squamous Epithelial Cells Mod /hpf (<5) Urine Bacteria Few /hpf (None Seen) Urine Mucus Few (None Seen) Urine Glucose Normal mg/dL (Normal) Urine Opiates Screen Neg (NEGATIVE) Urine Fentanyl Screen Neg (NEGATIVE) Urine Barbiturates Screen Neg (NEGATIVE) Urine Phencyclidine Screen Neg (NEGATIVE) Urine Amphetamines Screen Neg (NEGATIVE) Urine Benzodiazepines Screen Neg (NEGATIVE) Urine Cocaine Screen Neg (NEGATIVE) Urine Cannabinoids Screen Neg (NEGATIVE) Other Laboratory Tests 07/30/24 04:30 07/29/24 07:55 Brief Hx & Hospital Course: Admitted to labor and delivery for delivery due to GDMA2 at > 39 weeks pelvic exam revealed narrow pelvis w/ suspected LGA infant patient elected 1' c/section, declined Induction w/ trial of labor Normal op and post op course meeting all appropriate recovery milestones pain controlled Blood sugars WNL Operations or Procedures 1' C/Section Condition at Discharge: Stable Final Diagnosis/Problems List Term pregnacy, GDMA2, Delivered at 39 wk Morbid Obesity Precipitous drop in H/H Secondary Diagnosis: Suspected LGA / macrosomia Discharge Disposition: Home Discharge Instruct/Medications Diet: Regular Activity: Light activity Activity comment: Pelvic rest x 6 wk Follow Up/Referral: [address] Crowell incision check Discharge Statement: "Patient was advised to return to the ER or call 911 if any headaches, dizziness, shortness of breath, chest pain, abdominal pain, bleeding, fevers, or worsening of medical condition. Patient was counseled about treatment plan, medications, possible side effects, patientverbalized understanding. All questions were answered to the best of my ability. This discharge took greater then 30 minutes in planning, reviewing documentation, counseling the patient, and discussing with other team members." ASSESSMENT ASSESSMENT Assessment Visit Coding OBGYN Date of Service: Aug 01, 2024 Billing Provider: YASSINE OLIVER DO DEBURRING AND TOOLING MACHINE OPERATOR Common Visit Codes: [id number] DISCH DAY <30MIN YASSINE OLIVER DO Aug 01, 2024 05:42
[2024-08-01 07:00] VITALS: BP 137/76; PULSE 81; RESP 16; TEMP 97.9; O2SAT 99
== END 2024-08-01 12:05 | disposition home or self-care (01) | DRG 540 ==
LOC: UNDOADMOB 06:13 → LDRP 06:13 → OBSVTOIN 07:08 → INTOOBSV 07:08 → OBSVTOIN 07:31 → LDRP 07:31
PROVIDERS: ADMIT Obstetrics & Gynecology; ATTEND Obstetrics & Gynecology
PROC: 10D00Z1 Extraction of Products of Conception, Low, Open Approach (ICD-10-PCS; principal; 2024-07-29 10:24)
DX: O24.424 Gestational diabetes mellitus in childbirth, insulin controlled (principal); R71.0 Precipitous drop in hematocrit; O99.214 Obesity complicating childbirth; O33.9 Maternal care for disproportion, unspecified; O36.63X0 Maternal care for excessive fetal growth, third trimester, not applicable or unspecified; E66.01 Morbid (severe) obesity due to excess calories; Z37.0 Single live birth; Z3A.39 39 weeks gestation of pregnancy; Z91.199 Patient's noncompliance with other medical treatment and regimen due to unspecified reason; Z79.2 Long term (current) use of antibiotics; Z79.899 Other long term (current) drug therapy
CPT/HCPCS: 36415; 76805; 76819; 80053; 80307; 81001; 81002; 82948; 82962; 83036; 85025; 85610; 85730; 86780; 86803; 86850; 86900; 86901; 94760; 94762; 96361; 96365; G0378; J0690; J1885; J2405; J2590; J7060